=== PATIENT | female | born 1950 | race Caucasian/White ===

== ENCOUNTER 2024-02-09 05:50 | Outpatient (REF) | payer MEDICARE, SELFPAY ==
--- NOTE | ~2024-02-09 | CT_ITS ---
EXAMINATION: CT ABDOMEN AND PELVIS WITH CONTRAST CLINICAL INFORMATION: Lower abdominal pain and distention. COMPARISON: None available. TECHNIQUE: Multidetector volumetric images were obtained from the superior aspect of the liver through the pubic symphysis following administration 85 mL of Omnipaque 350 intravenous contrast. Sagittal and coronal reformatted images were obtained on the technologist's workstation. Oral contrast: No This CT examination was performed using dose optimization techniques as appropriate, variously including the following: *Automated exposure control *Adjustment of mA and/or kV according to patient size (this includes techniques or standardized protocols for targeted exams where dose is matched to indication/reason for exam; i.e. extremities or head) *Use of iterative reconstruction technique DLP: 537 mGy-cm FINDINGS: FILE CLERK: Nonobstructive bowel pattern. LUNG BASES: The visualized lung bases are unremarkable. Heart size within normal limits. No pericardial effusion. LIVER, GALLBLADDER, AND BILIARY TREE: Diffuse hypodensity to the liver parenchyma. No focal hepatic lesion or biliary ductal dilatation is present. The gallbladder has been surgically removed. PANCREAS: Atrophic SPLEEN: Unremarkable. ADRENAL GLANDS: Unremarkable. KIDNEYS AND URETERS: The kidneys are symmetrically perfused with bilateral cortical thinning. No hydronephrosis, hydroureter, or calculi seen. No perinephric stranding. BLADDER: Compressed. GASTROINTESTINAL TRACT: Decompressed stomach. Nonobstructive bowel pattern. Unremarkable appendix. Moderate fecal retention. ABDOMINAL WALL: No significant hernia is appreciated. LYMPH NODES: Normal. VASCULAR: Atherosclerotic calcifications nonaneurysmal aorta small caliber inferior vena cava, correlate with volume status. Patent portal system. PELVIC VISCERA: Unremarkable. OSSEOUS STRUCTURES: No suspicious osseous lesions, L3-L4 and L5-S1 disc disease. CT/CT abdomen pelvis w IV con IMPRESSION: No acute intra-abdominal or pelvic pathology. Hepatic steatosis. Moderate fecal retention. Fleischner guidelines were followed.
[2024-02-09] MEDS: iohexoL 350 MG/ML 100 ML INFUS..BTL IV (08:16)
[2024-02-09] MEDS: Barium Sulfate Oral (Berry) 450 ML ORAL.SUSP 900 ML PO (08:19)
[2024-02-09 08:57] LABS: Creatinine POC 0.8 mg/dL (0.5-1.4); GFR POC > 60
== END 2024-02-09 05:51 | disposition home or self-care (01) ==
LOC: HO.CT 05:50
PROVIDERS: PCP Internal Medicine; Visit Provider Internal Medicine
DX: R10.30 Lower abdominal pain, unspecified (principal)
CPT/HCPCS: 74177; 82565; Q9967

== ENCOUNTER 2024-05-25 07:54 | Day surgery (SDC) | payer MEDICARE, SELFPAY ==
--- NOTE | 2024-05-24 10:31 | HO.ANESPROP2 ---
Documented by User: Ivette Lowery NP 05/24/24 10:35 HPI - Anesthesia Eval Consult details Narrative: 74yo F for Upper Endoscopy Recent cardiac w/u with [facility] cardiology for atypical CP, DESIR. Negative stress echo. [facility] Past Medical History Medical History (Updated 05/24/24 @ 09:11 by Fabby Altamirano, WILSON) Elevated cholesterol Fibromyalgia DJD (degenerative joint disease) Hypertension Diabetes mellitus CKD (chronic kidney disease) stage 3, GFR 30-59 ml/min Oglesby's esophagus Surgical History Surgical History (Updated 05/23/24 @ 12:05 by Cris Oscar RN) Hx of tubal ligation Hx of cholecystectomy Hx of repair of right rotator cuff History of esophagogastroduodenoscopy (EGD) H/O colonoscopy Social History Social History Advance Directives: No Advance Directives Information Provided: Yes Meds Allergies Allergy/AdvReac Type Severity Reaction Status Date / Time lisinopril Allergy Severe Anaphylaxis Verified 05/25/24 08:18 nickel Allergy Unknown Unknown Verified 05/23/24 12:06 Penicillins Allergy Unknown Unknown Verified 05/23/24 12:06 Exam Height,Weight and Vital Signs: Height 5 ft 1 in Narrative Narrative: ECHO Stress 03/2024 Summary The patient showed an average functional capacity without developing any chest pain. There were no ischemic ST segment changes. There are no regional wall motion abnormalities seen following stress. Impressions No echocardiographic evidence of exercise induced myocardial ischemia. 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) Abnormal ECG When compared with ECG of 27-JUL-2023 17:43, No significant change was found Confirmed by VICTOR M YEAGER, [facility] ([id number]) on 03/09/2024 9:15:41 AM Assessment and Plan Assessment Anesthesia Assessment: Chart Reviewed Documented by User: Deepali Thompson MD 05/25/24 08:19 PMF Past Medical History Medical History (Updated 05/24/24 @ 09:11 by Fabby Altamirano, WILSON) Elevated cholesterol Fibromyalgia DJD (degenerative joint disease) Hypertension Diabetes mellitus CKD (chronic kidney disease) stage 3, GFR 30-59 ml/min Oglesby's esophagus Family History Family history of problems with anesthesia: No Surgical History Surgical History (Updated 05/23/24 @ 12:05 by Cris Oscar, [facility]) Hx of tubal ligation Hx of cholecystectomy Hx of repair of right rotator cuff History of esophagogastroduodenoscopy (EGD) H/O colonoscopy History of Problems with Anesthesia: No Social History Social History Advance Directives: No Advance Directives Information Provided: Yes Meds Allergies Allergy/AdvReac Type Severity Reaction Status Date / Time lisinopril Allergy Severe Anaphylaxis Verified 05/25/24 08:18 nickel Allergy Unknown Unknown Verified 05/23/24 12:06 Penicillins Allergy Unknown Unknown Verified 05/23/24 12:06 Exam Airway Mallampati Class: II TM Dist: >3cm Neck ROM: Full Partial: Upper Assessment and Plan Assessment Anesthesia Assessment: Anesthesia Plan Discussed Final Anesthetic Review Family History of Problems with Anesthesia: No History of Problems with Anesthesia: No NPO: Yes ASA Class: II Final Preanesthetic Review: No Changes in Pt Med Stat, Meds/Allgs Chart Reviewed, Consent Obtained/Reviewed and Anes Risks/Benef Reviewed Patient Risk: Intermediate Procedure Risk: Low Anesthetic Plan Anesthetic Plan: TIVA Disposition: Standard PACU
[2024-05-25 08:04] VITALS: BP 142/87; PULSE 74; RESP 20; TEMP 36.9; O2SAT 97
[2024-05-25 08:14] LABS: Glucose, Whole Blood 118 mg/dL (60-115)
[2024-05-25] MEDS: Lactated Ringers 1,000 ML 100 ML IVCONT (08:26)
--- NOTE | 2024-05-25 08:56 | MHC.SHP ---
Pre-Procedural Eval Section A - 24 Hr Update-Section A only Date of Service: 05/25/24 Section B - Complete if H&P > 30 days Chief Complaint: Oglesby's esophagus without dysplasia Details of Present Illness: see H&P no changes Relevant Family History (Specify if Yes): No Relevant Social History: None Present Medications: see Short Stay Collaborative assessment Medical History: No relevant PMH History of Previous Operations: No relevant previous surgery Allergies: Allergies Allergy/AdvReac Type Severity Reaction Status Date / Time lisinopril Allergy Severe Anaphylaxis Verified 05/25/24 08:18 nickel Allergy Mild Rash Verified 05/25/24 08:27 Penicillins Allergy Mild Rash Verified 05/25/24 08:27 Review of Systems Sugical H&P ROS: Negative: Constitution, Cardiovascular, Respiratory, Neurological, Psychiatric, Hem-Onc, Allergic/Immunologic, Gastrointestinal, Genitourinary, Musculoskeletal, Integumentary, Endocrine and Eyes/Ears/Nose/Throat Exam Surgical H&P Exam: Normal: HEENT, Normal: Heart, Normal: Lungs, Normal: Extremities, Normal: Abdomen, Normal: Skin and Normal: Neurological Plan Diagnosis/Plan: Unchanged I have reviewed the history and physical and performed a pertinent physical examination on my patient. No changes have occurred unless specified. Time Spent With Patient Time: Total time managing care of this patient today ____ minutes.
[2024-05-25 09:29] VITALS: BP 126/65; PULSE 70; RESP 12; TEMP 36.3; O2SAT 96
[2024-05-25 09:43] VITALS: BP 159/90; PULSE 69; RESP 16; O2SAT 97
--- NOTE | 2024-05-25 09:55 | OP_ITS ---
DATE OF SERVICE: 05/25/2024 SURGEON: Gaston Wheatley MD INDICATIONS: Oglesby esophagus. PREOPERATIVE DIAGNOSIS: POSTOPERATIVE DIAGNOSIS: PROCEDURE PERFORMED: Upper endoscopy with biopsy. ESTIMATED BLOOD LOSS: COMPLICATIONS: ANESTHESIA: Monitored anesthesia care. ASSISTANTS: SPECIMENS: DESCRIPTION OF PROCEDURE: A history and physical was performed. The risks and benefits of the procedure were explained to the patient and informed consent was obtained. The patient was placed in the left lateral decubitus position. The Olympus video gastroscope was introduced into the esophagus, stomach, and duodenum. Examination was performed and the scope was removed. She tolerated the procedure well and was returned to recovery area in stable condition. FINDINGS: Esophagus: The esophagus was normal. There was an irregular EG junction. There were no raised lesions or ulcerated areas. This was biopsied. Stomach: The stomach showed no evidence of masses or ulcers. There was some mild nonspecific erythema in the antrum. Biopsies were obtained from the antrum. Duodenum: The bulb and 2nd portion were normal. IMPRESSION: Oglesby esophagus. RECOMMENDATION: Follow up the biopsy results. MD MARISEL Moore/JORGEL / [id number]
[2024-05-25 09:58] VITALS: BP 166/85; PULSE 68; RESP 16; TEMP 36.2; O2SAT 97
[2024-05-25 10:08] VITALS: BP 168/71; PULSE 70; RESP 16; TEMP 36.2; O2SAT 97
== END 2024-05-25 10:45 | disposition home or self-care (01) ==
PROVIDERS: PCP Internal Medicine; Visit Provider Internal Medicine Gastroenterology
PROC: 0DJ08ZZ Inspection of Upper Intestinal Tract, Via Natural or Artificial Opening Endoscopic (ICD-10-PCS; CPT 43235; principal; 2024-05-25 10:10)
DX: K22.70 Barrett's esophagus without dysplasia (principal); K22.9 Disease of esophagus, unspecified; E11.22 Type 2 diabetes mellitus with diabetic chronic kidney disease; I12.9 Hypertensive chronic kidney disease with stage 1 through stage 4 chronic kidney disease, or unspecified chronic kidney disease; N18.30 Chronic kidney disease, stage 3 unspecified; E78.5 Hyperlipidemia, unspecified; G47.33 Obstructive sleep apnea (adult) (pediatric)
CPT/HCPCS: 43239; 82947; 88305; 88313; 88342; J1596; J2704